=== PATIENT | female | born 1995 | race Caucasian/White ===

== ENCOUNTER 2018-09-26 19:07 | Emergency (ER) | payer MEDICAID ==
[~2018-09-26] VITALS: Ht 167.6 cm; Wt 49.0 kg
[2018-09-26 21:18] VITALS: BP 100/54
== END 2018-09-26 21:20 | disposition home or self-care (01) ==
LOC: ED 21:14
DX: O26.891 Other specified pregnancy related conditions, first trimester (principal); Z3A.01 Less than 8 weeks gestation of pregnancy; F17.200 Nicotine dependence, unspecified, uncomplicated
CPT/HCPCS: 36415; 76830; 80048; 81003; 82040; 84702; 85025; 99284; Q0162; 84703

== ENCOUNTER 2019-03-29 18:17 | Observation (INO) | payer MEDICAID ==
[~2019-03-29] VITALS: Ht 168.9 cm; Wt 60.9 kg
[2019-03-29 18:49] VITALS: BP 111/70
[2019-03-29 20:52] LABS: MICROSCOPIC INDICATED
[2019-03-29 20:53] LABS: AMPHETAMINE SCREEN, URINE Negative (Negative); BARBITURATE SCREEN, URINE Negative (Negative); BENZODIAZEPINE SCREEN, URINE Negative (Negative); CANNABINOID SCREEN, URINE Positive (Negative); COCAINE SCREEN, URINE Negative (Negative); METHADONE SCREEN, URINE Negative (Negative); OPIATE SCREEN, URINE Negative (Negative)
[2019-03-29 21:10] LABS: BASOPHILS # (AUTO) 0.08 x10^3/uL (0-0.1); BASOPHILS % (AUTO) 1 % (0-1); EOSINOPHILS # (AUTO) 0.12 x10^3/uL (0-0.4); EOSINOPHILS % (AUTO) 1 % (1-7); LYMPHOCYTES # (AUTO) 2.01 x10^3/uL (1-3.4); LYMPHOCYTES % (AUTO) 14 % (22-44); MD NO; MEAN CORPUSCULAR HEMOGLOBIN 33.7 pg (27.0-34.8); MEAN CORPUSCULAR HGB CONC 34.1 g/dL (32.4-35.8); MEAN CORPUSCULAR VOLUME 98.9 fL (80-100); MEAN PLATELET VOLUME 8.3 fL (7.4-10.4); MONOCYTES # (AUTO) 0.84 x10^3/uL (0.2-0.8); MONOCYTES % (AUTO) 6 % (2-9); NEUTROPHILS # (AUTO) 11.21 x10^3/uL (1.8-6.8); NEUTROPHILS % (AUTO) 79 % (42-75); PLATELET COUNT 258 x10^3/uL (130-400); RED BLOOD COUNT 3.85 x10^6/uL (3.82-5.3); RED CELL DISTRIBUTION WIDTH 13.2 % (9.6-15.2)
== END 2019-03-29 22:15 | disposition home or self-care (01) ==
LOC: LDOP 18:17 → LDIP 19:26
PROVIDERS: ADMIT Obstetrics & Gynecology; ATTEND Obstetrics & Gynecology
DX: O34.03 Maternal care for unspecified congenital malformation of uterus, third trimester (principal); O45.93 Premature separation of placenta, unspecified, third trimester; O43.93 Unspecified placental disorder, third trimester; O26.893 Other specified pregnancy related conditions, third trimester; R31.9 Hematuria, unspecified; O99.283 Endocrine, nutritional and metabolic diseases complicating pregnancy, third trimester; E86.0 Dehydration; O99.323 Drug use complicating pregnancy, third trimester; F12.90 Cannabis use, unspecified, uncomplicated; Z3A.32 32 weeks gestation of pregnancy; Z79.899 Other long term (current) drug therapy
CPT/HCPCS: 36415; 59025; 76770; 76815; 80307; 81001; 85025; 87086; 99211; G0378; G0463

== ENCOUNTER 2019-04-02 12:14 | Outpatient (CLI) | payer MEDICAID ==
[~2019-04-02] VITALS: Ht 170.2 cm; Wt 60.0 kg
[2019-04-02 12:33] VITALS: BP 93/58
[2019-04-02] MEDS ORDERED: PREN1TAB60 PO (13:01)
[2019-04-02] MEDS ORDERED: NITR100C56 PO (13:02)
[2019-04-02 14:03] LABS: AMPHETAMINE SCREEN, URINE Negative (Negative); BARBITURATE SCREEN, URINE Negative (Negative); BENZODIAZEPINE SCREEN, URINE Negative (Negative); CANNABINOID SCREEN, URINE Positive (Negative); COCAINE SCREEN, URINE Negative (Negative); METHADONE SCREEN, URINE Negative (Negative); OPIATE SCREEN, URINE Negative (Negative)
== END 2019-04-02 13:30 | disposition home or self-care (01) ==
LOC: LDOP 12:14
PROVIDERS: ATTEND Obstetrics & Gynecology
DX: O23.43 Unspecified infection of urinary tract in pregnancy, third trimester (principal); Z3A.32 32 weeks gestation of pregnancy
CPT/HCPCS: 59025; 80307; 99211; G0463

== ENCOUNTER 2019-04-17 13:15 | Outpatient (CLI) | payer OTHER, MEDICAID ==
[~2019-04-17 13:15] MED LIST: NITR100C56 PO; PREN1TAB60 PO
[2019-04-17 13:59] LABS: MICROSCOPIC NOT IND
== END 2019-04-17 16:53 | disposition home or self-care (01) ==
LOC: LDOP 13:15
PROVIDERS: ATTEND Obstetrics & Gynecology
DX: O26.893 Other specified pregnancy related conditions, third trimester (principal); Z3A.35 35 weeks gestation of pregnancy
CPT/HCPCS: 36415; 59025; 81003; 85460; 87086; 99211; G0463

== ENCOUNTER 2019-04-30 20:14 | Emergency (ER) | payer OTHER, MEDICAID ==
--- NOTE | 2019-04-30 20:34 | NUR ---
direct trasfer to OB after duc ( ed sup ) contact to L&D
== END 2019-04-30 20:39 | disposition left against medical advice (07) ==
LOC: ED 20:30
DX: O26.853 Spotting complicating pregnancy, third trimester (principal); Z3A.37 37 weeks gestation of pregnancy; Z53.21 Procedure and treatment not carried out due to patient leaving prior to being seen by health care provider

== ENCOUNTER 2019-04-30 20:32 | Outpatient (CLI) | payer OTHER, MEDICAID ==
[~2019-04-30] VITALS: Ht 167.6 cm; Wt 59.0 kg
[2019-04-30 20:37] VITALS: BP 110/70
[2019-04-30 21:24] LABS: MICROSCOPIC INDICATED
[2019-04-30 21:44] LABS: AMPHETAMINE SCREEN, URINE Negative (Negative); BARBITURATE SCREEN, URINE Negative (Negative); BENZODIAZEPINE SCREEN, URINE Negative (Negative); CANNABINOID SCREEN, URINE Positive (Negative); COCAINE SCREEN, URINE Negative (Negative); METHADONE SCREEN, URINE Negative (Negative); OPIATE SCREEN, URINE Negative (Negative)
[2019-04-30] MEDS ORDERED: NITROFURANTOIN (MACROBID) 100 MG CAPSULE PO ONE (22:00)
[2019-04-30] MEDS ORDERED: NITROFURANTOIN (MACROBID) 100 MG CAPSULE ONE (22:03)
== END 2019-04-30 22:15 | disposition home or self-care (01) ==
LOC: LDOP 20:32
PROVIDERS: ATTEND Obstetrics & Gynecology
DX: O26.893 Other specified pregnancy related conditions, third trimester (principal); R10.9 Unspecified abdominal pain; Z3A.36 36 weeks gestation of pregnancy
CPT/HCPCS: 59025; 80307; 81001; 87086; 99211; G0463

== ENCOUNTER 2019-05-01 08:14 | Inpatient (IN) | payer OTHER, MEDICAID ==
[~2019-05-01] VITALS: Ht 167.6 cm; Wt 60.0 kg
[2019-05-01 09:16] VITALS: BP 114/70
[2019-05-01] MEDS ORDERED: NEWBORN KIT ONE (10:15)
[2019-05-01] MEDS ORDERED: OXYTOCIN 30U/ 0.9% NaCL 500ML 1,000 ML ONE (10:15)
[2019-05-01] MEDS ORDERED: MISOPROSTOL 200 MCG TABLET ONE (10:15)
[2019-05-01] MEDS ORDERED: LIDOCAINE 1%, 20ML ONE (10:15)
[2019-05-01] MEDS ORDERED: FENTANYL PF 100 MCG/2ML ONE (10:15)
[2019-05-01] MEDS ORDERED: D5%-LACTATED RINGERS 1,000 ML IV SCH (10:18)
[2019-05-01] MEDS ORDERED: LACTATED RINGERS 1,000 ML IV SCH (10:18)
[2019-05-01] MEDS ORDERED: FENTANYL/BUPIV./NS/PF 250 ML EPIDCONT SCH (10:18)
[2019-05-01] MEDS ORDERED: OXYTOCIN 30U/ 0.9% NaCL 500ML 500 ML IV PRN ×2 (10:18)
[2019-05-01] MEDS ORDERED: OXYTOCIN 30U/ 0.9% NaCL 500ML 500 ML IV ONE (10:18)
[2019-05-01] MEDS ORDERED: TERBUTALINE 1 MG/ML, 1ML IVPush PRN (10:30)
[2019-05-01] MEDS ORDERED: FENTANYL PF 500 MCG, BUPIVACAINE/PF 0.5%, 30ML 62.5 ML in SODIUM CHLORIDE 0.9% 177.5 ML EPIDCONT SCH (10:30)
[2019-05-01] MEDS ORDERED: FENTANYL PF 100 MCG/2ML IV PRN (10:30)
[2019-05-01] MEDS ORDERED: LACTATED RINGERS 1,000 ML IVBOLUS PRN (10:30)
[2019-05-01] MEDS ORDERED: CALCIUM CARBONATE 500 MG TAB.CHEW PO PRN (10:30)
[2019-05-01] MEDS ORDERED: EPHEDRINE 50 MG/ML, 1ML IVPush PRN (10:30)
[2019-05-01] MEDS ORDERED: TERBUTALINE 1 MG/ML, 1ML SQ PRN (10:30)
[2019-05-01] MEDS ORDERED: SODIUM CHLORIDE FLUSH 10ML SYR IVF PRN (10:30)
[2019-05-01] MEDS ORDERED: ONDANSETRON 2MG/ML, 2ML IVPush PRN (10:30)
[2019-05-01] MEDS ORDERED: FENTANYL PF 100 MCG/2ML IVPush PRN (10:30)
[2019-05-01] MEDS ORDERED: ONDANSETRON 2MG/ML, 2ML ONE (10:31)
[2019-05-01] MEDS: LACTATED RINGERS 1,000 ML IV SCH ×2 (10:37→23:40)
[2019-05-01 10:55] LABS: MEAN CORPUSCULAR HEMOGLOBIN 33.4 pg (27.0-34.8); MEAN CORPUSCULAR HGB CONC 33.8 g/dL (32.4-35.8); MEAN CORPUSCULAR VOLUME 98.7 fL (80-100); MEAN PLATELET VOLUME 8.8 fL (7.4-10.4); PLATELET COUNT 231 x10^3/uL (130-400); RED CELL DISTRIBUTION WIDTH 13.4 % (9.6-15.2)
[2019-05-01 11:21] LABS: BASOPHILS # (AUTO) 0.04 x10^3/uL (0-0.1); BASOPHILS % (AUTO) 0 % (0-1); EOSINOPHILS # (AUTO) 0.12 x10^3/uL (0-0.4); EOSINOPHILS % (AUTO) 1 % (1-7); LYMPHOCYTES # (AUTO) 1.17 x10^3/uL (1-3.4); LYMPHOCYTES % (AUTO) 6 % (22-44); MD SCAN; MONOCYTES % (AUTO) 3 % (2-9); NEUTROPHILS # (AUTO) 17.15 x10^3/uL (1.8-6.8); NEUTROPHILS % (AUTO) 90 % (42-75)
[2019-05-01] MEDS ORDERED: FENTANYL/BUPIV./NS/PF 250 ML EPIDCONT ONE (11:40)
[2019-05-01] MEDS ORDERED: CALCIUM CARBONATE 500 MG TAB.CHEW ONE (19:26)
[2019-05-01] MEDS ORDERED: ONDANSETRON 2MG/ML, 2ML IV PRN (23:30)
[2019-05-01] MEDS ORDERED: DOCUSATE 100 MG CAPSULE PO PRN (23:30)
[2019-05-01] MEDS ORDERED: MISOPROSTOL 200 MCG TABLET PR PRN (23:30)
[2019-05-01] MEDS ORDERED: OXYcodone/APAP 5/325MG TABLET PO PRN (23:30)
[2019-05-01] MEDS ORDERED: HYDROcodone/APAP 5/325 TABLET PO PRN (23:30)
[2019-05-01] MEDS ORDERED: ACETAMINOPHEN 325 MG TABLET PO PRN (23:30)
[2019-05-01] MEDS ORDERED: SIMETHICONE 80 MG CHEW TAB PO PRN (23:30)
[2019-05-01] MEDS: OXYTOCIN 30U/ 0.9% NaCL 500ML 500 ML IV SCH (23:39)
[2019-05-01] MEDS ORDERED: IBUPROFEN 600 MG TABLET ONE (23:43)
[2019-05-01] MEDS: IBUPROFEN 600 MG TABLET PO PRN (23:45)
[2019-05-02 01:36] VITALS: BP 115/73
[2019-05-02 05:15] VITALS: BP 119/76
[2019-05-02 07:20] LABS: MEAN CORPUSCULAR HEMOGLOBIN 33.6 pg (27.0-34.8); MEAN CORPUSCULAR HGB CONC 34.2 g/dL (32.4-35.8); MEAN CORPUSCULAR VOLUME 98.3 fL (80-100); MEAN PLATELET VOLUME 8.6 fL (7.4-10.4); PLATELET COUNT 211 x10^3/uL (130-400); RED BLOOD COUNT 3.73 x10^6/uL (3.82-5.3); RED CELL DISTRIBUTION WIDTH 13.3 % (9.6-15.2)
[2019-05-02 07:45] VITALS: BP 111/74
[2019-05-02] MEDS: PRENATAL VIT/IRON/FA 1 EACH TABLET PO SCH (07:47)
[2019-05-02] MEDS: IBUPROFEN 600 MG TABLET PO PRN ×2 (07:48→13:47)
[2019-05-02 07:50] LABS: MD YES
[2019-05-02 07:51] LABS: <PLATELET ESTIMATE> ADEQUATE; <PLT MORPHOLOGY> NORMAL PLT MORPH; <RBC MORPHOLOGY> NORMAL; BAND#(MANUAL) 0.57 x10^3/uL; BANDS%(MANUAL) 2 % (0-7); LYMPHS% (MANUAL) 6 % (22-44); MONOS#(MANUAL) 1.98 x10^3/uL (0.3-2.7); MONOS% (MANUAL) 7 % (2-9); SEG#(MANUAL) 24.06 x10^3/uL (1.8-6.8); SEGS% (MANUAL) 85 % (42-75)
[2019-05-02] MEDS: OXYTOCIN 30U/ 0.9% NaCL 500ML 500 ML IV SCH ×2 (09:14→19:14)
[2019-05-02 13:45] VITALS: BP 115/77
[2019-05-02 17:30] VITALS: BP 114/72
[2019-05-02 20:30] VITALS: BP 121/78
[2019-05-03] MEDS: OXYTOCIN 30U/ 0.9% NaCL 500ML 500 ML IV SCH (05:14)
[2019-05-03 08:34] VITALS: BP 134/84
[2019-05-03] MEDS ORDERED: IBUP-1222 PO (09:29)
[2019-05-03] MEDS: PRENATAL VIT/IRON/FA 1 EACH TABLET PO SCH (09:50)
[2019-05-03] MEDS: IBUPROFEN 600 MG TABLET PO PRN (09:50)
== END 2019-05-03 13:00 | disposition home or self-care (01) | DRG 807 ==
LOC: LDOP 08:14 → LDIP 10:47 → 2NW 05-02 02:12
PROVIDERS: ADMIT Obstetrics & Gynecology; ATTEND Obstetrics & Gynecology
PROC: 10E0XZZ Delivery of Products of Conception, External Approach (ICD-10-PCS; principal; 2019-05-01)
PROC: 0UQMXZZ Repair Vulva, External Approach (ICD-10-PCS; 2019-05-01)
PROC: 3E0R3BZ Introduction of Anesthetic Agent into Spinal Canal, Percutaneous Approach (ICD-10-PCS; 2019-05-01)
PROC: 00HU33Z Insertion of Infusion Device into Spinal Canal, Percutaneous Approach (ICD-10-PCS; 2019-05-01)
DX: O34.03 Maternal care for unspecified congenital malformation of uterus, third trimester (principal); Z37.0 Single live birth; O70.0 First degree perineal laceration during delivery; Q51.3 Bicornate uterus; Z3A.37 37 weeks gestation of pregnancy; O69.81X0 Labor and delivery complicated by cord around neck, without compression, not applicable or unspecified
CPT/HCPCS: 36415; 85025; 86592; 86850; 86900; G0378; J2405; J3010; J2590; J7120

== ENCOUNTER 2019-09-12 19:30 | Emergency (ER) | payer MEDICAID, OTHER ==
[~2019-09-12] VITALS: Ht 167.6 cm; Wt 47.4 kg
[~2019-09-12 19:30] MED LIST changes: +IBUP-1222 PO
[2019-09-12 19:36] VITALS: BP 116/80
[2019-09-12] MEDS ORDERED: ONDANSETRON ODT 4 MG ONE (19:42)
[2019-09-12] MEDS ORDERED: ONDANSETRON ODT 4 MG PO ONE (20:00)
== END 2019-09-12 20:42 ==
LOC: ED 20:35
DX: R10.9 Unspecified abdominal pain (principal); R35.0 Frequency of micturition
CPT/HCPCS: 99283; Q0162

== ENCOUNTER 2019-09-12 20:36 | Emergency (ER) | payer MEDICAID, OTHER ==
[~2019-09-12] VITALS: Ht 167.6 cm; Wt 43.0 kg
--- NOTE | 2019-09-12 21:11 | NUR ---
TASK RN: THIS IS A 24 YO FEMALE BIB [facility] FOR LLQ ABD PAIN RADIATING TO LEFT FLANK STARTING AT 1600. GIVEN 50MCG FENTANYL AND TOTAL OF 8MG ZOFRAN EVENT TECHNICIAN, TOTAL OF 100ML NS. PATIENT WAS CHECKED IN HERE COUPLE HOURS AGO AND WAS IN LOBBY "I FELT BETTER SO I LEFT, THEN IT STARTED GETTING WORSE SO MY FRIEND CALLED THE AMBULANCE". PATIENT STATES HX UTI'S AND KIDNEY STONES. ALL MONITORING IN PLACE, SINUS BRADYCARDIA ON CHOCOLATE MOLDER, VSS, CALL LIGHT IN REACH. PATIENT REQUESTING PAIN MEDS AT THIS TIME
[2019-09-12] MEDS ORDERED: MORPHINE SULFATE 4 MG/ML, 1ML ONE ×2 (21:24→22:44)
[2019-09-12] MEDS ORDERED: ONDANSETRON 2MG/ML, 2ML ONE (21:24)
[2019-09-12] MEDS: MORPHINE SULFATE 4 MG/ML, 1ML IVPush PRN ×2 (21:27→22:49)
[2019-09-12] MEDS ORDERED: ONDANSETRON 2MG/ML, 2ML IVPush ONE (21:30)
[2019-09-12] MEDS ORDERED: SODIUM CHLORIDE FLUSH 10ML SYR IVF ONE (21:30)
--- NOTE | 2019-09-12 21:31 | NUR ---
PT LAYING IN BED, RESPIRATIONS EVEN AND UNLABORED, CONNECTED TO CARDIAC, BP AND O2 MONITORS. FRIEND AT BEDSIDE, CALL LIGHT IN REACH, BED RAILS UP X2.
--- NOTE | 2019-09-12 21:37 | NUR ---
PT AMBULATORY TO BATHROOM, STEADY GAIT.
[2019-09-12 21:43] LABS: MEAN CORPUSCULAR HEMOGLOBIN 31.4 pg (27.0-34.8); MEAN CORPUSCULAR HGB CONC 33.4 g/dL (32.4-35.8); MEAN PLATELET VOLUME 8.5 fL (7.4-10.4); PLATELET COUNT 301 x10^3/uL (130-400); RED BLOOD COUNT 4.46 x10^6/uL (3.82-5.3); RED CELL DISTRIBUTION WIDTH 13.6 % (9.6-15.2)
[2019-09-12 21:54] LABS: ALANINE AMINOTRANSFERASE 20 U/L (12-78); ALBUMIN 3.7 g/dL (3.4-5.0); ANION GAP 10 mmol/L (5-15); CALCIUM 8.7 mg/dL (8.5-10.1); CHLORIDE 112 mmol/L (98-107); CREATININE 0.88 mg/dL (0.55-1.02)
[2019-09-12 21:59] LABS: ALKALINE PHOSPHATASE 45 U/L (45-117); BILIRUBIN,TOTAL 0.6 mg/dL (0.2-1.0)
[2019-09-12 22:05] LABS: MD YES
[2019-09-12 22:07] LABS: BAND#(MANUAL) 0.82 x10^3/uL; BANDS%(MANUAL) 4 % (0-7); LYMPH#(MANUAL) 2.87 x10^3/uL (1-3.4); LYMPHS% (MANUAL) 14 % (22-44); MONOS#(MANUAL) 1.03 x10^3/uL (0.3-2.7); MONOS% (MANUAL) 5 % (2-9); SEG#(MANUAL) 15.79 x10^3/uL (1.8-6.8); SEGS% (MANUAL) 77 % (42-75)
[2019-09-12 22:09] LABS: <PLATELET ESTIMATE> ADEQUATE; <RBC MORPHOLOGY> NORMAL
[2019-09-12 22:10] LABS: LARGE PLATELETS 1+
--- NOTE | 2019-09-12 22:21 | NUR ---
TASK RN: ATTEMPTED TO STRAIGHT CATH FOR STERILE UA DUE TO PATIENT HAVING PERIOD, GOOD VISUALIZATION OF URETHRA, NO URINE OUTPUT. PATIENT STATES SHE HAS NOT BEEN ABLE TO KEEP ANY FLUIDS DOWN. JESUS VALDEZ NOTIFIED, IVF STARTED.
[2019-09-12] MEDS ORDERED: SODIUM CHLORIDE 0.9% 1,000ML IVBOLUS ONE (22:30)
[2019-09-12] MEDS ORDERED: CEFTRIAXONE PMX 1GM/50ML 50 ML ONE (22:47)
[2019-09-12] MEDS ORDERED: CEFTRIAXONE PMX 1GM/50ML 50 ML IV ONE (23:00)
[2019-09-12 23:34] LABS: MICROSCOPIC INDICATED
--- NOTE | 2019-09-12 23:49 | NUR ---
PT SLEEPING, POSITIONED TO COMFORT. GIRLFRIEND AT BEDSIDE. ALL NEEDS MET AT THIS TIME. WILL CONITNUE TO MONITOR.
--- NOTE | 2019-09-13 00:08 | NUR ---
PT BACK FROM IMAGING.
--- NOTE | 2019-09-13 00:18 | NUR ---
PT LAYING IN BED, EASILY ROASED, ALL NEEDS MET AT THIS TIME. AWAITING CT READ.
--- NOTE | 2019-09-13 00:29 | NUR ---
AMDITTING PROVIDER AT BEDSIDE.
[2019-09-13] MEDS ORDERED: KETOROLAC 30 MG/1 ML ONE (00:52)
[2019-09-13] MEDS ORDERED: KETOROLAC 30 MG/1 ML IVPush ONE (01:00)
--- NOTE | 2019-09-13 01:03 | NUR ---
PT UPDATED ON POC, LAYING IN BED, CONNECTED TO ALL MONITORS, VSS, PT REMAINS ELIZ.
[2019-09-13 01:38] LABS: MEAN CORPUSCULAR HEMOGLOBIN 31.3 pg (27.0-34.8); MEAN CORPUSCULAR HGB CONC 33.1 g/dL (32.4-35.8); MEAN CORPUSCULAR VOLUME 94.4 fL (80-100); MEAN PLATELET VOLUME 8.4 fL (7.4-10.4); PLATELET COUNT 254 x10^3/uL (130-400); RED BLOOD COUNT 4.19 x10^6/uL (3.82-5.3); RED CELL DISTRIBUTION WIDTH 13.4 % (9.6-15.2)
--- NOTE | 2019-09-13 01:47 | NUR ---
ERP TO BEDSIDE TO UPDATED PT ON POC.
[2019-09-13 01:52] VITALS: BP 104/61
[2019-09-13 03:00] LABS: BASOPHILS # (AUTO) 0.01 x10^3/uL (0-0.1); BASOPHILS % (AUTO) 0 % (0-1); EOSINOPHILS # (AUTO) 0.24 x10^3/uL (0-0.4); EOSINOPHILS % (AUTO) 1 % (1-7); LYMPHOCYTES # (AUTO) 0.67 x10^3/uL (1-3.4); LYMPHOCYTES % (AUTO) 3 % (22-44); MD SCAN; MONOCYTES # (AUTO) 0.31 x10^3/uL (0.2-0.8); MONOCYTES % (AUTO) 2 % (2-9); NEUTROPHILS # (AUTO) 19.48 x10^3/uL (1.8-6.8); NEUTROPHILS % (AUTO) 94 % (42-75)
== END 2019-09-13 02:08 | disposition home or self-care (01) ==
LOC: ED 09-13 01:19
DX: N13.2 Hydronephrosis with renal and ureteral calculous obstruction (principal); D72.829 Elevated white blood cell count, unspecified; R11.2 Nausea with vomiting, unspecified
CPT/HCPCS: 36415; 74018; 74176; 76770; 80053; 81001; 83690; 84702; 85025; 96365; 96375; 96376; 99285; J0696; J1885; J2270; J7030